=== PATIENT | male | born 1965 | race Caucasian/White ===

== ENCOUNTER 2025-02-05 06:16 | Day surgery (SDC) | payer BC, SELFPAY ==
[2025-02-05] VITALS (8 sets, daily range): BP systolic 110–123; BP diastolic 68–79; PULSE 49–65; RESP 16–18; TEMP 36.4–37; O2SAT 97–99; BMI 29.0
--- OUTSIDE RECORDS SUMMARY | 2025-02-05 06:19 | XMS RPT_ITS | CCD ---
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 28.70 ALLERGIES: No known drug allergies MEDICATION/IV/DRIP/F LUID ORDERS Order Description Priority Entered Acknowledged Completed LAB ORDERS Order Description Priority Entered Acknowledged Collected Completed DIAGNOSTIC STUDY ORDERS Order Description Priority Entered Acknowledged Completed Foot L Complete Stat Stat 08:36 07/25/2024 08:39 08:39 Obdulio Jaimes D.O. 07/25/2024 07/25/2024 Iza Ramirez R.N. R.N. Reason for Study: Foot/Heel Injury STAFF ORDERS Order Description Priority Entered Acknowledged Collected Completed Diego Tape Toes 09:36 07/25/2024 09:55 07/25/2024 Pam Oconnor D.O. RCindyNCindy 1 of 2 Order Sheet Post-op Shoe 09:36 07/25/2024 09:55 07/25/2024 Pam Oconnor D.O. RCindyNCindy [Electronically signed by Obdulio Jaimes D.O. (07/25/2024 09:35 EST)] [Electronically signed by Obdulio Jaimes D.O. (07/25/2024 09:36 EST)] 2 of 2 Normal [facility] ED PHYSICIAN CLINICAL REPORT on 07-25-2024 ED PHYSICIAN CLINICAL REPORT Narrative Physician Clinical Narrative [place] [address] [place] [address] [id number] 07/25/2024 Patient: CURT MANSFIELD [facility]#: [id number] Sex: Male : 1965 Age: 59y Disposition: Discharge to Home Disposition Decision Time: 09:31 07/25/2024 Measurements Wt: 90.7 kg, Ht/Shlomo: 70.0 in, BMI: 28.70 Initial Vital Sign Measured Time BP MAP HR RR O2Sat ETCO2 Temp Pain GCS RTS 08:30 07/25/2024 155/85 108 72 16 97% 97.9 F 3 Time Seen: 08:29 07/25/2024. Arrived- By private vehicle. Historian- patient. HISTORY OF PRESENT ILLNESS Chief Complaint: LOWER EXTREMITY PAIN and SWELLING and ; ;(left 5th toe pain). Severity is described as being moderate. The quality is noted to be aching. This started last night and is still present. Location: Left 5th toe. The patient has had swelling, but not had redness. The patient has had difficulty walking. No bladder dysfunction, bowel dysfunction, sensory loss or motor loss. Patient notes an injury. Similar symptoms previously. None. Recent medical care: Not recently seen/assessed. REVIEW OF SYSTEMS 1 of 4 Narrative CVS: No chest pain. SKIN: No skin rash. MUSCULOSKELETAL: No neck pain or back pain. NEUROLOGICAL: No headache. EYES: No blurred vision. THROAT: No sore throat. GI: No abdominal pain, vomiting, diarrhea or black stools. CONSTITUTIONAL: No fever. RESPIRATORY: No cough or difficulty breathing. PAST HISTORY See nurses notes. Hypertension: [Resolved] Surgeries: Tonsillectomy Medications: no known home medications Allergies: no known drug allergies SOCIAL HISTORY No alcohol use or drug use. ADDITIONAL NOTES The nursing notes have been reviewed. PHYSICAL EXAM Vital Signs: Have been reviewed. Appearance: Alert. Oriented X3. No acute distress. CVS: Normal heart rate and rhythm. Respiratory: No respiratory distress. Skin: Skin warm and dry. Normal skin color. Extremities: Left fifth toe: mild tenderness and swelling. No laceration. Neuro: Oriented X 3. No motor deficit. 2 of 4 Narrative LABS, X-RAYS, AND EKG Diagnostic Tests: Diagnostic tests have been ordered, with results reviewed and considered in the medical decision making process. Diagnostic Study Tests: FOOT COMPLETE LT Final EXAM Date: 07/25/2024 08:49:00 EST MsgRcvd: 07/25/2024 09:10 [place] [address] Patient: CURT MANSFIELD Phone#: : 1965 Age: 59 Gender: M Pt. Type: ER Account: [id number] Location: 2 Ordering: OBDULIO JAIMES Exam Date: 07/25/2024/8:37 Family Phys: Charge Code: 764152 Physician: Conway Order #: [id number] Dose#: PROCEDURE: X-RAY FOOT LT COMPLETE MIN 3 VIEWS COMPARISON: None. INDICATIONS: Foot injury. FINDINGS: BONES: Oblique fracture of the 5th proximal phalanx. The fracture does not involve the articular surfaces. Remaining osseous structures are intact. Bipartite medial 1st sesamoid. Small calcaneal spur measuring 0.3 cm. SOFT TISSUES: Soft tissue swelling the lateral foot the level of the fracture EFFUSION: None visible. OTHER: Negative. CONCLUSION: 1. Oblique fracture of the 5th proximal phalanx. Dictated by: Haydee Fish MD on 07/25/2024 at 9:03 Approved by: Haydee Fish MD on 07/25/2024 at 9:06 3 of 4 Narrative PROGRESS AND PROCEDURES MEDICAL DECISION MAKING: (This is a 59-year-old male presenting with left foot pain around his pinky toe. He states he was wrestling with his grand kids last night and kicked the couch and a vertically. He states it was deformed but he reduced it. On examination he has tenderness at the base of the left pinky toe. No other pain is noted. Patient is declines analgesia. Differential includes contusion, toe fracture, foot fracture . Three views of the left foot interpreted by myself shows an acute fracture of the 5th proximal phalanx which is oblique. Patient will be diego taped and placed in a postop shoe. He began follow up with Podiatry. He declines analgesia or crutches.). Disposition: Condition: good. Discharged in good condition. CLINICAL IMPRESSION Closed nondisplaced proximal phalanx fracture of the left 5th toe. DISCHARGE INSTRUCTIONS Follow-up: Follow up with your healthcare provider. Understanding of the discharge instructions verbalized. Follow-up with: Helga Meyer DPM, [facility], Podiatry, Phone: [phone], Fax: [phone], [address] [phone]. Call for an appointment. (Electronically signed by Obdulio Jaimes D.O. 07/25/24 09:35:19 EST) Generated by [facility] 4 of 4 [facility] ED SUPER BILLon 07-25-2024 ED SUPER BILL [address] [address] [id number] 07/25/2024 Patient: CURT MANSFIELD Sex: Male : 1965 Age: 59y Item Professional Category Description Facility Code Code Quantity Fee Total Nurse/E/M EMERGENCY 383131 1 $0.00 $0.00 DEPARTMENT VISIT LOW/MODER SEVERITY (22568-11) Grand Total $0.00 Providers Obdulio Jaimes D.O. Chief Complaint LOWER EXTREMITY PAIN and SWELLING and ; ;(left 5th toe pain). Principal Diagnosis Closed nondisplaced proximal phalanx fracture of the left 5th toe. ICD-10 Codes 1 of 2 [facility] S92.515A: Nondisplaced fracture of proximal phalanx of left lesser toe(s), initial encounter for closed fracture 2 of 2 [facility] ED VISIT SUMMARYon ED VISIT SUMMARY Visit Overview Visit Overview [address] [address] [id number] 07/25/2024 Patient: CURT MANSFIELD Sex: Male : 1965 Age: 59y 07/25/2024 10:46 AM EST ED Arrival:08:22 07/25/2024 EST Status: Recent Travel:no Language:eng Adv Directive:No Isolation Status: Ethnicity:N Fall Risk:no risk Infectious Disease Exposure:no Measurements:5'10 / 177.8 Self-Harm Status:risk Sepsis Screen:negative cm 200.0 lb / 90.7 kg Chief Complaint:left 5th toe, LEFT LOWER EXTREMITY PAIN, LEFT LOWER EXTREMITY REDNESS, LEFT LOWER EXTREMITY SWELLING, ([employer]), and (Pt was playing with his grandkids and accidently ran into the couch. Causing his left pinky toe to dislocate. Pt popped it back in. Pt is having a lot of pain today. ) ALLERGIES No Known Drug Allergies 1 of 3 Visit Overview HOME MEDICATIONS None PAST MEDICAL HISTORY / PROBLEMS Hypertension: Resolved See nurses notes PAST SURGICAL HISTORY Tonsillectomy SOCIAL HISTORY Smoking status: No Alcohol use: Yes Drug use: No ED COURSE MEDICATIONS GIVEN IN EMERGENCY DEPARTMENT IV SITE INFORMATION INTAKE OUTPUT REASSESMENT (most recent) 08:34 07/25/24. Ambulatory to room. GENERAL / NEURO / PSYCH: Oriented X 4. Alert. EXTREMITIES: Limited ROM present. Extremity pulses are within normal limits. Left fifth toe: tenderness, swelling, erythema, ecchymosis and deformity. Limited movement secondary to pain (diminished flexion and extension). SKIN: Skin is warm and dry. VITAL SIGNS First Vitals Last Vitals Temp 08:30 07/25/24 97.9 F Temp 08:30 07/25/24 97.9 F BP 08:30 07/25/24 155/85 BP 08:30 07/25/24 155/85 2 of 3 Visit Overview First Vitals Last Vitals HR 08:30 07/25/24 72 HR 08:30 07/25/24 72 RR 08:30 07/25/24 16 RR 08:30 07/25/24 16 O2 Sat 08:30 07/25/24 97% O2 Sat 08:30 07/25/24 97% Pain 08:30 07/25/24 3 Pain 08:30 07/25/24 3 ETCO2 08:30 07/25/24 ETCO2 08:30 07/25/24 GCS 08:30 07/25/24 GCS 08:30 07/25/24 RTS 08:30 07/25/24 RTS 08:30 07/25/24 PROCEDURES NURSING INTERVENTIONS LABS / STUDIES LABS / STUDIES ORDERED Foot L Complete CLINICAL IMPRESSION CLOSED NONDISPLACED PROXIMAL PHALANX FRACTURE OF THE LEFT 5TH TOE 3 of 3 Normal [facility] ED VITALS FLOW SHEETon 07-25 ED VITALS FLOW SHEET Vitals Vital Sign Flow Sheet [address] [place] [address] [id number] 07/25/2024 Patient: CURT MANSFIELD Sex: Male : 1965 Age: 59y Measurements Wt: 90.7 kg, Ht/Shlomo: 70.0 in, BMI: 28.70 Measured Time BP MAP HR RR O2Sat ETCO2 Temp Pain GCS RTS 08:30 07/25/2024 155/85 108 72 16 97% 97.9 F 3 1 of 1 Normal [facility] FOOT COMPLETE LTon FOOT COMPLETE LT [address] [address] Patient: CURT MANSFIELD Phone#: : 1965 Age: 59 Gender: M Pt. Type: ER Account: [id number] Location: [facility] Ordering: OBDULIO JAIMES Exam Date: 07/25/2024/8:37 Family Phys: Charge Code: [id number] Physician: Conway Order #: [id number] Dose#: PROCEDURE: X-RAY FOOT LT COMPLETE MIN 3 VIEWS COMPARISON: None. INDICATIONS: Foot injury. FINDINGS: BONES: Oblique fracture of the 5th proximal phalanx. The fracture does not involve the articular surfaces. Remaining osseous structures are intact. Bipartite medial 1st sesamoid. Small calcaneal spur measuring 0.3 cm. SOFT TISSUES: Soft tissue swelling the lateral foot the level of the fracture EFFUSION: None visible. OTHER: Negative. CONCLUSION: 1. Oblique fracture of the 5th proximal phalanx. Dictated by: Haydee Fish MD on 07/25/2024 at 9:03 Approved by: Haydee Fish MD on 07/25/2024 at 9:06 Normal [facility] COMPREHENSIVE METABOLIC PANE [place] 04-04-2024 Albumin [Mass/Vol] 4.5 g/dL Normal 3.6-5.1 [facility] Comment on above: Performed By: #### 1 5417, 1292, 6882 #### [facility] of [address], [address] [place] [address] Strip Polisher: Pietro Sanford MD Albumin/Globulin [Mass ratio] 2.0 {ratio} Normal 1.0-2.5 [facility] Comment on above: Performed By: #### 1 0231, 7600, 5363 #### [facility] of [address], [address] [place] [address] Strip Polisher: Pietro Sanford MD ALP [Catalytic activity/Vol] 43 U/L Normal 35-144 [facility] Comment on above: Performed By: #### 1 023, 7599, 5363 #### [facility] of [address], [address] [place] [address] Strip Polisher: Pietro Sanford MD ALT [Catalytic activity/Vol] 19 U/L Normal 9-46 [facility] Comment on above: Performed By: #### 1 023, 7599, 5363 #### [facility] of [address], [address] [place] [address] Strip Polisher: Pietro Sanford MD AST [Catalytic activity/Vol] 20 U/L Normal 10-35 [facility] Comment on above: Performed By: #### 1 023, 7599, 5363 #### [facility] of [place] [address] Strip Polisher: Pietro Sanford MD Bilirubin [Mass/Vol] 1.1 mg/dL Normal 0.2-1.2 [facility] Comment on above: Performed By: #### 1 023, 7599, 5363 #### [facility] of [place] [address] Strip Polisher: Pietro Sanford MD Calcium [Mass/Vol] 9.3 mg/dL Normal 8.6-10.3 [facility] Comment on above: Performed By: #### 1 023, 7599, 5363 #### [facility] of [place] [address] Strip Polisher: Pietro Sanford MD Chloride [Moles/Vol] 103 mmol/L Normal 98-110 [facility] Comment on above: Performed By: #### 1 230, 7599, 5363 #### [facility] of [address], [address] [place] [address] Strip Polisher: Pietro Sanford MD CO2 [Moles/Vol] 28 mmol/L Normal 20-32 [facility] Comment on above: Performed By: #### 1 230, 7599, 5363 #### [facility] [place] [address] Strip Polisher: Pietro Sanford MD Creatinine [Mass/Vol] 0.58 mg/dL Low 0.70-1.35 [facility] Comment on above: Performed By: #### 1 230, 7599, 5363 #### [facility] [place] [address] Strip Polisher: Pietro Sanford MD GFR/1.73 sq M.predicted among non-blacks MDRD (S/P/Bld) [Vol rate/Area] 112 mL/min/{1.73_m2} Normal > OR = 60 [facility] Comment on above: Performed By: #### 1 230, 7599, 5363 #### [facility] [place] [address] Strip Polisher: Pietro Sanford MD Globulin (S) [Mass/Vol] 2.2 g/dL Normal 1.9-3.7 [facility] Comment on above: Performed By: #### 1 230, 7599, 5363 #### [facility] [place] [address] Strip Polisher: Pietro Sanford MD Glucose [Mass/Vol] 89 mg/dL Normal 65-99 [facility] Comment on above: Result Comment: Fasting reference interval Performed By: #### 1 230, 7599, 5363 #### [facility] of [place] [address] Strip Polisher: Pietro Sanford MD Potassium [Moles/Vol] 3.9 mmol/L Normal 3.5-5.3 [facility] Comment on above: Performed By: #### 1 0231, 0, 5363 #### [facility] of [place] [address] Strip Polisher: Pietro Sanford MD Protein [Mass/Vol] 6.7 g/dL Normal 6.1-8.1 [facility] Comment on above: Performed By: #### 1 023, 7599, 5363 #### [facility] of [place] [address] Strip Polisher: Pietro Sanford MD Sodium [Moles/Vol] 140 mmol/L Normal 135-146 [facility] Comment on above: Performed By: #### 1 023, 7599, 5363 #### [facility] of [place] [address] Strip Polisher: Pietro Sanford MD Urea nitrogen [Mass/Vol] 9 mg/dL Normal 7-25 [facility] Comment on above: Performed By: #### 1 023, 7599, 5363 #### [facility] of [place] [address] Strip Polisher: Pietro Sanford MD Urea nitrogen/Creatinine [Mass ratio] 16 mg/mg Normal 6-22 [facility] Comment on above: Performed By: #### 1 023, 7599, 5363 #### [facility] of [place] [address] Strip Polisher: Pietro Sanford MD LIPID PANEL, [facility] - Cholesterol [Mass/Vol] 194 mg/dL Normal <200 [facility] Comment on above: Performed By: #### 1 0231, 7599, 5363 #### [facility] of [place] [address] Strip Polisher: Pietro Sanford MD Cholesterol in HDL [Mass/Vol] 80 mg/dL Normal > OR = 40 [facility] Comment on above: Performed By: #### 1 0231, 7600, 5363 #### [facility] [place] [address] Strip Polisher: Pietro Sanford MD Cholesterol in LDL [Mass/Vol] 98 mg/dL Normal [facility] Comment on above: Result Comment: Refe rence range: <100 Desirable range <100 mg/dL for primary prevention; <70 mg/dL for patients with CHD or diabetic patients with > or = 2 CHD risk factors. LDL-C is now calculated using the Pete calculation, which is a validated novel method providing better accuracy than the Friedewald equation in the estimation of LDL-C. Seferino SS et al. DILSHAD. 2013;310(19): 6039-9254 (http://education.[employer]ozy.[employer]/faq/CUX791) Performed By: #### 1 0231, 7600, 5363 #### [facility] [place] [address] Strip Polisher: Pietro Sanford MD Cholesterol.total/Ch olesterol in HDL [Mass ratio] 2.4 {ratio} Normal <5.0 [facility] Comment on above: Performed By: #### 1 023, 0, 5363 #### [facility] [place] [address] Strip Polisher: Pietro Sanford MD NON HDL CHOLESTEROL 114 mg/dL (calc) Normal <130 [facility] Comment on above: Result Comment: For patients with diabetes plus 1 major ASCVD risk factor, treating to a non-HDL-C goal of <100 mg/dL (LDL-C of <70 mg/dL) is considered a therapeutic option. Performed By: #### 1 0231, 7600, 5363 #### [facility] [place] [address] Strip Polisher: Pietro Sanford MD Triglyceride [Mass/Vol] 72 mg/dL Normal <150 [facility] Comment on above: Performed By: #### 1 0231, 7600, 5363 #### [facility] [address] Strip Polisher: Pietro Sanford MD PSA, TOTALon 04-04-2024 PSA, TOTAL 1.43 ng/mL Normal < OR = 4.00 [employer] Comment on above: Result Comment: The total PSA value from this assay system is standardized against the WHO standard. The test result will be approximately 20% lower when compared to the equimolar-standardized total PSA (Jorden Phani). Comparison of serial PSA results should be interpreted with this fact in mind. This test was performed using the Siemens chemiluminescent method. Values obtained from different assay methods cannot be used interchangeably. PSA levels, regardless of value, should not be interpreted as absolute evidence of the presence or absence of disease. Performed By: #### 1 3141, 3310, 5363 #### [facility] [address], [address] [place] [address] Strip Polisher: Pietro Sanford MD Laboratory - Chemistry and C hemistry - challengeon 04-03-2024 Albumin [Mass/Vol] 4.5 g/dL Normal 3.6 - 5.1 g/dL [facility], [facility].; [employer] Albumin/Globulin [Mass ratio] 2.0 {ratio} Normal 1.0 - 2.5 [facility], [facility].; [employer] ALP [Catalytic activity/Vol] 43 U/L Normal 35 - 144 U/L [facility], [facility].; [employer] ALT [Catalytic activity/Vol] 19 U/L Normal 9 - 46 U/L [employer] [facility], [facility].; [employer] AST [Catalytic activity/Vol] 20 U/L Normal 10 - 35 U/L [employer] [facility], [facility].; [employer] Bilirubin [Mass/Vol] 1.1 mg/dL Normal 0.2 - 1 .2 mg/dL [employer] [facility], [facility].; [employer] Calcium [Mass/Vol] 9.3 mg/dL Normal 8.6 - 10. 3 mg/dL [employer] [facility] [employer] Chloride [Moles/Vol] 103 mmol/L Normal 98 - 11 0 mmol/L [employer] [facility], [facility].; [facility] Cholesterol [Mass/Vol] 194 mg/dL Normal [facility].; [facility], [facility] Cholesterol in HDL [Mass/Vol] 80 mg/dL Normal [facility].; [facility], [facility] Cholesterol in LDL [Mass/Vol] 98 mg/dL Normal [facility], [facility].; [facility], [facility] CO2 [Moles/Vol] 28 mmol/L Normal 20 - 32 mmol/L [facility].; [facility], [facility] Creatinine [Mass/Vol] 0.58 mg/dL Abnormal 0.70 - 1.35 mg/dL [facility].; [facility], [facility] GFR/1.73 sq M.predicted among non-blacks MDRD (S/P/Bld) [Vol rate/Area] 112 mL/min/{1.73_m2} Normal [facility].; [facility], [facility] Glucose [Mass/Vol] 89 mg/dL Normal 65 - 99 mg/dL [facility].; [facility], [facility] Potassium [Moles/Vol] 3.9 mmol/L Normal 3.5 - 5.3 mmol/L [facility], [facility]; [facility], [facility] Protein [Mass/Vol] 6.7 g/dL Normal 6.1 - 8.1 g/dL [facility].; [facility], [facility] Sodium [Moles/Vol] 140 mmol/L Normal 135 - 146 mmol/L [facility], [facility].; [facility], [facility]. Triglyceride [Mass/Vol] 72 mg/dL Normal [facility], [facility].; [facility], [facility]. Urea nitrogen [Mass/Vol] 9 mg/dL Normal 7 - 25 mg/dL [facility], [facility].; [facility], [facility] Urea nitrogen/Creatinine [Mass ratio] 16 mg/mg Normal 6 - 22 [facility], [facility].; [facility], [facility] No Panel Informationon 04-03 CHOL/HDLC RATIO 2.4 Normal [facility].; [facility], [facility] GLOBULIN 2.2 Normal 1.9 - 3.7 [facility], [facility]; [facility] [facility] NON HDL CHOLESTEROL 114 Normal [facility].; [employer] [facility] PSA, TOTAL 1.43 ng/mL Normal [facility]; [facility], [facility] Laboratory - Chemistry and C hemistry - challengeon 06-01-2022 Albumin [Mass/Vol] 4.6 g/dL Normal 3.6 - 5.1 g/dL [facility].; [facility], [facility] Albumin/Globulin [Mass ratio] 1.8 {ratio} Normal 1.0 - 2.5 [facility].; [employer] [facility]. ALP [Catalytic activity/Vol] 51 U/L Normal 35 - 144 U/L [facility].; [facility], [facility]. ALT [Catalytic activity/Vol] 36 U/L Normal 9 - 46 U/L [facility].; [facility] [employer] [facility], [facility]. AST [Catalytic activity/Vol] 21 U/L Normal 10 - 35 U/L [facility].; [employer] [facility]. Bilirubin [Mass/Vol] 0.8 mg/dL Normal 0.2 - 1 .2 mg/dL [facility].; [employer] [facility], [facility]. Calcium [Mass/Vol] 9.4 mg/dL Normal 8.6 - 10. 3 mg/dL [facility].; [facility] [employer] [facility], [facility]. Chloride [Moles/Vol] 103 mmol/L Normal 98 - 11 0 mmol/L [facility].; [employer], [facility]. Cholesterol [Mass/Vol] 205 mg/dL Abnormal [facility].; [employer] [facility], [facility]. Cholesterol in HDL [Mass/Vol] 54 mg/dL Normal [facility].; [employer] [facility], [facility]. Cholesterol in LDL [Mass/Vol] 132 mg/dL Abnormal [facility].; [employer] [facility], [facility]. CO2 [Moles/Vol] 29 mmol/L Normal 20 - 32 mmol/L [facility], [facility].; [employer] [facility], [facility]. Creatinine [Mass/Vol] 0.76 mg/dL Normal 0.70 - 1.30 mg/dL [facility].; [facility] [facility], [facility]. GFR/1.73 sq M.predicted among non-blacks MDRD (S/P/Bld) [Vol rate/Area] 104 mL/min/{1.73_m2} Normal [facility].; [facility], [facility] Glucose [Mass/Vol] 100 mg/dL Abnormal 65 - 99 mg/dL [facility].; [facility], [facility] Potassium [Moles/Vol] 4.7 mmol/L Normal 3.5 - 5.3 mmol/L [facility]; [facility], [facility] Protein [Mass/Vol] 7.2 g/dL Normal 6.1 - 8.1 g/dL [facility]; [facility], [facility] Sodium [Moles/Vol] 140 mmol/L Normal 135 - 146 mmol/L [facility], [facility]; [facility], [facility] Triglyceride [Mass/Vol] 90 mg/dL Normal [facility]; [facility], [facility] Urea nitrogen [Mass/Vol] 17 mg/dL Normal 7 - 25 mg/dL [facility]; [facility], [facility] Laboratory - Hematology and Cell countson 06-01-2022 HbA1c (Bld) [Mass fraction] 5.0 % Normal [facility]; [facility], [facility]. No Panel Informationon 06-01 BUN/CREATININE RATIO NOT APPLICABLE Normal - [facility]; [facility], [facility] CHOL/HDLC RATIO 3.[address] [facility]; [facility], [facility]. GLOBULIN 2.6 Normal 1.9 - 3.7 [facility]; [facility], [facility]. NON HDL CHOLESTEROL 151 Abnormal [facility]; [facility], [facility] PSA, TOTAL 1.24 ng/mL Normal [facility].; [facility], [facility]. Laboratoryon 01-13-2015 Lower GI hemoglobin IA Ql (Stl) Not detected Normal [facility]; [facility], [facility]. Laboratory - Chemistry and C hemistry - challengeon 01-06-2015 Cholesterol [Mass/Vol] 209 mg/dL Abnormal 125 - 200 mg/dL [facility], [facility].; [employer], [facility]. Cholesterol in HDL [Mass/Vol] 63 mg/dL Normal [facility].; [employer] [facility], [facility]. Cholesterol in LDL [Mass/Vol] 134 mg/dL Abnormal [facility], [facility].; [employer], [employer]. Cholesterol non HDL [Mass/Vol] 146 mg/dL Normal [facility] [employer] [facility].; [employer], [employer]. Cholesterol.total/Ch olesterol in HDL [Mass ratio] 3.3 {ratio} Normal [facility], [facility].; [employer], [employer]. Glucose [Mass/Vol] 95 mg/dL Normal [facility].; [employer], [employer]. Triglyceride [Mass/Vol] 61 mg/dL Normal [employer], [facility].; [employer], [employer]. Laboratory - Chemistry and C hemistry - challengeon 01-29-2014 Cholesterol [Mass/Vol] 204 mg/dL Abnormal 125 - 200 mg/dL [facility].; [employer], [employer]. Cholesterol in HDL [Mass/Vol] 59 mg/dL Normal [employer] [facility].; [employer], [employer]. Cholesterol in LDL [Mass/Vol] 133 mg/dL Abnormal [facility].; [employer], [employer]. Cholesterol non HDL [Mass/Vol] 145 mg/dL Normal [employer] [facility], [facility].; [employer], [employer]. Cholesterol.total/Ch olesterol in HDL [Mass ratio] 3.5 {ratio} Normal [facility].; [employer] Glucose [Mass/Vol] 99 mg/dL Normal 65 - 99 mg/dL [facility].; [employer], [employer]. Triglyceride [Mass/Vol] 59 mg/dL Normal [employer] [facility].; [employer], [employer]. Laboratory - Chemistry and C hemistry - challengeon 07-23-2011 Bilirubin Ql (U) Negative [facility].; [employer], [employer]. Ketones Ql (U) Negative Normal [facility].; [employer], [employer]. pH (U) 7.0 [pH] Normal 4.6 - 8.0 [employer].; [employer] Specific gravity (U) [Rel density] 1.025 Normal 1.001 - 1.025 [employer]; [employer]. Laboratory - Hematology and Cell countson 07-23-2011 Hemoglobin Ql (U) Negative Normal [employer].; [employer]. Laboratory - Specimen inform ationon 07-23-2011 Appearance (U) clear Normal [facility] [employer]; [employer]. Color (U) yellow Normal [employer]; [employer]. Laboratory - Urinalysison Glucose Test strip (U) [Mass/Vol] Negative Normal [employer]; [employer]. Leukocyte esterase Test strip Ql (U) Negative Normal [employer].; [employer]. Nitrite Ql (U) Negative Normal [facility] [employer]; [employer]. Protein Ql (U) Negative Normal [facility] [employer]; [employer]. No Panel Informationon 07-23 UA - UROBILINOGEN 0.2 mg/dL Normal [employer]; [employer]. Laboratory - Chemistry and C hemistry - challengeon 07-21-2011 Albumin [Mass/Vol] 4.7 g/dL Normal 3.6 - 5.1 g/dL [facility] [employer].; [employer] Albumin/Globulin [Mass ratio] 2.0 {ratio} Normal 1.0 - 2.1 [employer]; [employer]. ALP [Catalytic activity/Vol] 60 U/L Normal 40 - 115 U/L [employer].; [employer]. ALT [Catalytic activity/Vol] 53 U/L Normal 9 - 60 U/L [employer].; [employer]. AST [Catalytic activity/Vol] 37 U/L Normal 10 - 40 U/L [employer].; [employer]. Bilirubin [Mass/Vol] 0.6 mg/dL Normal 0.2 - 1 .2 mg/dL [facility], [facility].; [facility], [facility]. Calcium [Mass/Vol] 9.7 mg/dL Normal 8.6 - 10. 2 mg/dL [facility], [facility].; [facility], [facility]. Chloride [Moles/Vol] 101 mmol/L Normal 98 - 11 0 mmol/L [facility], [facility].; [facility] Cholesterol [Mass/Vol] 225 mg/dL Abnormal 125 - 200 mg/dL [facility], [facility].; [facility], [facility]. Cholesterol in HDL [Mass/Vol] 57 mg/dL Normal [facility], [facility].; [facility], [facility]. Cholesterol in LDL [Mass/Vol] 153 mg/dL Abnormal [facility], [facility].; [facility], [facility]. Cholesterol.total/Ch olesterol in HDL [Mass ratio] 3.9 {ratio} Normal [facility], [facility].; [facility], [facility]. CO2 [Moles/Vol] 29 mmol/L Normal 21 - 33 mmol/L [facility], [facility].; [facility], [facility]. Creatinine [Mass/Vol] 0.78 mg/dL Normal 0.78 - 1.34 mg/dL [facility], [facility].; [facility], [facility]. GFR/1.73 sq M.predicted among blacks MDRD (S/P/Bld) [Vol rate/Area] 125 {ML/MIN/1.73M2} Normal [facility], [facility].; [facility] GFR/1.73 sq M.predicted MDRD (S/P/Bld) [Vol rate/Area] 107 {ML/MIN/1.73M2} Normal [facility], [facility].; [facility] Globulin (S) [Mass/Vol] 2.4 g/dL Normal 2.1 - 3.7 g/dL [facility], [facility].; [facility] Glucose [Mass/Vol] 100 mg/dL Abnormal 65 - 99 mg/dL [facility].; [facility] Potassium [Moles/Vol] 4.7 mmol/L Normal 3.5 - 5.3 mmol/L [facility].; [facility], [facility] Protein [Mass/Vol] 7.1 g/dL Normal 6.2 - 8.3 g/dL [facility].; [facility], [facility] Sodium [Moles/Vol] 136 mmol/L Normal 135 - 146 mmol/L [facility].; [facility], [facility] Triglyceride [Mass/Vol] 77 mg/dL Normal [facility]; [facility], [facility] Urea nitrogen [Mass/Vol] 14 mg/dL Normal 7 - 25 mg/dL [facility]; [facility], [facility] Urea nitrogen/Creatinine [Mass ratio] 18.3 mg/mg Normal 6 - 22 [facility]; [facility], [facility] Laboratory - Chemistry and C hemistry - challengeon 12-18-2010 Albumin [Mass/Vol] 4.5 g/dL Normal 3.6 - 5.1 g/dL [facility].; [facility], [facility] Albumin/Globulin [Mass ratio] 1.7 {ratio} Normal 1.0 - 2.1 [facility].; [facility], [facility]. ALP [Catalytic activity/Vol] 65 U/L Normal 40 - 115 U/L [facility].; [facility], [facility]. ALT [Catalytic activity/Vol] 46 U/L Normal 9 - 60 U/L [facility], [facility].; [facility], [facility]. AST [Catalytic activity/Vol] 37 U/L Normal 10 - 40 U/L [facility], [facility].; [facility], [facility]. Bilirubin [Mass/Vol] 0.6 mg/dL Normal 0.2 - 1 .2 mg/dL [facility], [facility].; [facility], [facility]. Calcium [Mass/Vol] 9.9 mg/dL Normal 8.6 - 10. 2 mg/dL [facility], [facility].; [facility], [facility]. Chloride [Moles/Vol] 103 mmol/L Normal 98 - 11 0 mmol/L [facility], [facility].; [facility], [facility] Cholesterol [Mass/Vol] 224 mg/dL Abnormal 125 - 200 mg/dL [facility], [facility].; [facility], [facility]. Cholesterol in HDL [Mass/Vol] 53 mg/dL Normal [facility].; [facility], [facility]. Cholesterol in LDL [Mass/Vol] 155 mg/dL Abnormal [facility].; [facility], [facility]. Cholesterol.total/Ch olesterol in HDL [Mass ratio] 4.2 {ratio} Normal [facility].; [facility], [facility]. CO2 [Moles/Vol] 25 mmol/L Normal 21 - 33 mmol/L [facility], [facility].; [facility], [facility]. Creatinine [Mass/Vol] 0.81 mg/dL Normal 0.78 - 1.34 mg/dL [facility], [facility].; [facility], [facility]. GFR/1.73 sq M.predicted among blacks MDRD (S/P/Bld) [Vol rate/Area] 124 {ML/MIN/1.73M2} Normal [facility], [facility].; [facility], [facility]. GFR/1.73 sq M.predicted MDRD (S/P/Bld) [Vol rate/Area] 107 {ML/MIN/1.73M2} Normal [facility], [facility].; [facility], [facility]. Globulin (S) [Mass/Vol] 2.7 g/dL Normal 2.1 - 3.7 g/dL [facility], [facility].; [facility], [facility]. Glucose [Mass/Vol] 101 mg/dL Abnormal 65 - 99 mg/dL [facility].; [facility], [facility]. Potassium [Moles/Vol] 4.0 mmol/L Normal 3.5 - 5.3 mmol/L [facility], [facility].; [facility], [facility]. Protein [Mass/Vol] 7.2 g/dL Normal 6.2 - 8.3 g/dL [facility], [facility].; [facility], [facility]. Sodium [Moles/Vol] 139 mmol/L Normal 135 - 146 mmol/L [facility], [facility].; [facility], [facility]. Triglyceride [Mass/Vol] 82 mg/dL Normal [facility], [facility].; [facility], [facility]. TSH Qn 2.22 m[IU]/L Normal 0.40 - 4.50 {mIU/L} [facility].; [employer] Urea nitrogen [Mass/Vol] 17 mg/dL Normal 7 - 25 mg/dL [facility].; [employer]. Urea nitrogen/Creatinine [Mass ratio] 20.4 mg/mg Normal 6 - 22 [employer].; [employer]. Laboratory - Chemistry and C hemistry - challengeon 09-25-2010 Bilirubin Ql (U) Negative Normal [facility] [employer]. Ketones Ql (U) Negative Normal [facility] [employer].; [employer]. pH (U) 6.0 [pH] Normal 4.6 - 8.0 [employer].; [employer] Specific gravity (U) [Rel density] 1.010 Normal 1.001 - 1.025 [employer].; [employer]. Laboratory - Hematology and Cell countson 09-25-2010 Hemoglobin Ql (U) Negative Normal [employer].; [employer]. Laboratory - Specimen inform ationon 09-25-2010 Appearance (U) Clear Normal [facility] [employer]. Color (U) Yellow Normal [employer].; [employer]. Laboratory - Urinalysison Glucose Test strip (U) [Mass/Vol] Negative Normal [employer].; [employer]. Leukocyte esterase Test strip Ql (U) Trace Normal [employer].; [employer]. Nitrite Ql (U) Negative [facility].; [employer]. Protein Ql (U) Negative Normal [facility].; [employer]. No Panel Informationon 09-25 UA - UROBILINOGEN 0.2 mg/dL Normal [employer].; [employer]. Vital Signs Date Time Vital Sign Value Performing Clinician Faci lity 12-28-2024 13:30-0400 Body height 177.8 cm Luke Kerry PA Work Phone: [facility] 12-28-2024 13:30-0400 Body mass index (BMI) [Ratio] 29 kg/m2 Luke Kerry PA Work Phone: [facility] 12-28-2024 13:30-0400 Body temperature 97.8 [degF] Luke Kerry PA Work Phone: [facility] 12-28-2024 13:30-0400 Body weight 91.62 kg Luke Kerry PA Work Phone: [facility] 12-28-2024 13:30-0400 Diastolic blood pressure 67 mm[Hg] Luke Kerry PA Work Phone: [facility] 12-28-2024 13:30-0400 Heart rate 99 /min Luke Kerry PA Work Phone: [facility] 12-28-2024 13:30-0400 Respiratory rate 18 /min Luke Kerry PA Work Phone: [facility] 12-28-2024 13:30-0400 SaO2% (BldA) [Mass fraction] 99 % Luke Kerry PA Work Phone: [facility] 12-28-2024 13:30-0400 Systolic blood pressure 146 mm[Hg] Luke Kerry PA Work Phone: [facility] 04-03-2024 08:41-0400 Body height 180.34 cm Leonor Richter RN [facility], [facility].; [facility]. 04-03-2024 08:41-0400 Body mass index (BMI) [Ratio] 28.03 kg/m2 Leonor Richter RN [facility], [facility].; [facility] 04-03-2024 08:41-0400 Body surface area Derived from formula 2.11 m2 Leonor Richter RN [facility] ServicesL[employer].; [facility]. 04-03-2024 08:41-0400 Body weight 91.17 kg Leonor Richter RN [facility].; [employer] [facility]. 04-03-2024 08:41-0400 Diastolic blood pressure 72 mm[Hg] Leonor Richter RN [facility].; [employer]. Comment on above: Patient Position: Sitting; Cuff Location : Right Arm; Cuff Size: Standard 04-03-2024 08:41-0400 Heart rate 69 /min Leonor Richter RN [facility] ServicesL[employer].; [employer]. Comment on above: Pattern: Regular 04-03-2024 08:41-0400 Systolic blood pressure 125 mm[Hg] Leonor Richter RN [facility].; [employer]. Comment on above: Patient Position: Sitting; Cuff Location : Right Arm; Cuff Size: Standard 03-18-2023 08:05-0400 Body height 180.34 cm Rosita Alcantara MA [facility] Services[facility].; [employer]. 03-18-2023 08:05-0400 Body mass index (BMI) [Ratio] 38.49 kg/m2 Rosita Alcantara MA [facility].; [employer] [facility]. 03-18-2023 08:05-0400 Body surface area Derived from formula 2.42 m2 Rosita Alcantara MA [facility].; [employer] [facility]. 03-18-2023 08:05-0400 Body weight 125.19 kg Rosita Alcantara MA [facility] [employer] [facility].; [employer]. 03-18-2023 08:05-0400 Diastolic blood pressure 76 mm[Hg] Rosita Alcantara MA [employer] [facility].; [employer]. Comment on above: Patient Position: Sitting; Cuff Location : Left Arm; Cuff Size: Standard 03-18-2023 08:05-0400 Heart rate 82 /min Rosita Alcantara MA [facility] [employer] [facility] [employer].; [employer]. Comment on above: Pattern: Regular 03-18-2023 08:05-0400 Systolic blood pressure 165 mm[Hg] Rosita Alcantara MA [facility], [facility].; [facility], [facility]. Comment on above: Patient Position: Sitting; Cuff Location : Left Arm; Cuff Size: Standard 06-01-2022 08:35-0500 Diastolic blood pressure 76 mm[Hg] Desi Mayberry LPN [facility] [employer]. Comment on above: Patient Position: Sitting; Cuff Location : Left Arm; Cuff Size: Standard 06-01-2022 08:35-0500 Heart rate 67 /min Desi Mayberry LPN [facility], [facility].; [employer]. Comment on above: Pattern: Regular 06-01-2022 08:35-0500 Systolic blood pressure 153 mm[Hg] Desi Mayberry LPN [facility], [facility].; [employer], [employer]. Comment on above: Patient Position: Sitting; Cuff Location : Left Arm; Cuff Size: Standard 06-01-2022 08:32-0500 Body height 180.34 cm Desi Mayberry LPN [facility], [facility].; [employer], [facility]. 06-01-2022 08:32-0500 Body mass index (BMI) [Ratio] 37.66 kg/m2 Desi Mayberry LPN [facility], [facility].; [employer] [facility], [facility]. 06-01-2022 08:32-0500 Body surface area Derived from formula 2.4 m2 Desi Mayberry LPN [facility], [facility].; [facility], [facility]. 06-01-2022 08:32-0500 Body weight 122.47 kg Desi Mayberry LPN [facility], [facility].; [employer], [facility]. 06-01-2022 08:32-0500 Diastolic blood pressure 79 mm[Hg] Desi Mayberry LPN [facility], [facility].; [employer], [employer]. Comment on above: Patient Position: Sitting; Cuff Location : Left Arm; Cuff Size: Standard 06-01-2022 08:32-0500 Heart rate 75 /min Desi Mayberry LPN [facility], [facility].; [employer], [employer]. Comment on above: Pattern: Regular 06-01-2022 08:32-0500 Systolic blood pressure 158 mm[Hg] Desi Mayberry LPN [facility], [facility].; [employer] [facility], [facility]. Comment on above: Patient Position: Sitting; Cuff Location : Left Arm; Cuff Size: Standard 01-09-2021 09:37-0400 Body height 180.34 cm Desi Mayberry LPN [facility] [facility], [facility].; [facility], [facility]. 01-09-2021 09:37-0400 Body mass index (BMI) [Ratio] 36.96 kg/m2 Desi Mayberry LPN [facility], [facility].; [facility] [employer] [facility], [facility]. 01-09-2021 09:37-0400 Body surface area Derived from formula 2.38 m2 Desi Mayberry SERVICE ENGINE REPAIRER [facility], [facility].; [facility] [employer] [facility], [facility]. 01-09-2021 09:37-0400 Body weight 120.2 kg Desi Mayberry LPN [facility], [facility].; [facility] [employer] [facility], [facility]. 01-09-2021 09:37-0400 Diastolic blood pressure 68 mm[Hg] Desi Mayberry LPN [facility].; [place] [employer] [facility], [employer]. Comment on above: Patient Position: Sitting; Cuff Location : Left Arm; Cuff Size: Standard 01-09-2021 09:37-0400 Heart rate 81 /min Desi Mayberry LPN [facility], [facility].; [employer], [employer]. Comment on above: Pattern: Regular 01-09-2021 09:37-0400 Systolic blood pressure 154 mm[Hg] Desi Mayberry LPN [facility], [facility].; [place] [employer] [facility], [employer]. Comment on above: Patient Position: Sitting; Cuff Location : Left Arm; Cuff Size: Standard 11-26-2019 15:54-0400 Body height 180.34 cm Chapincito Ramos MD Work Phone: [facility], [facility].; [place] [employer] [facility], [facility]. 11-26-2019 15:54-0400 Body mass index (BMI) [Ratio] 36.82 kg/m2 Chapincito Ramos MD Work Phone: [facility], [facility].; [place] [employer] [facility], [facility]. 11-26-2019 15:54-0400 Body surface area Derived from formula 2.37 m2 Chapincito Ramos MD Work Phone: [employer].; [employer]. 11-26-2019 15:54-0400 Body weight 119.75 kg Chapincito Ramos MD Work Phone: [employer].; [employer]. 11-26-2019 15:54-0400 Diastolic blood pressure 84 mm[Hg] Chapincito Ramos MD Work Phone: [employer].; [employer]. Comment on above: Patient Position: Sitting; Cuff Location : Left Arm; Cuff Size: Large 11-26-2019 15:54-0400 Heart rate 86 /min Chapincito Ramos MD Work Phone: [employer].; [employer]. Comment on above: Pattern: Regular 11-26-2019 15:54-0400 Systolic blood pressure 148 mm[Hg] Chapincito Ramos MD Work Phone: [employer].; [employer]. Comment on above: Patient Position: Sitting; Cuff Location : Left Arm; Cuff Size: Large 08-31-2016 08:56-0500 Body height 180.34 cm Chapincito Ramos MD Work Phone: [employer]; [employer]. 08-31-2016 08:56-0500 Body mass index (BMI) [Ratio] 30.96 kg/m2 Chapincito Ramos MD Work Phone: [employer]; [employer]. 08-31-2016 08:56-0500 Body surface area Derived from formula 2.2 m2 Chapincito Ramos MD Work Phone: [employer]; [employer]. 08-31-2016 08:56-0500 Body weight 100.7 kg Chapincito Ramos MD Work Phone: [employer].; [employer]. 08-31-2016 08:56-0500 Diastolic blood pressure 85 mm[Hg] Chapincito Ramos MD Work Phone: [employer].; [employer]. Comment on above: Patient Position: Sitting; Cuff Location : Left Arm; Cuff Size: Standard 08-31-2016 08:56-0500 Heart rate 73 /min Chapincito Ramos MD Work Phone: [facility] [employer]. Comment on above: Pattern: Regular 08-31-2016 08:56-0500 Systolic blood pressure 132 mm[Hg] Chapincito Ramos MD Work Phone: [employer].; [employer]. Comment on above: Patient Position: Sitting; Cuff Location : Left Arm; Cuff Size: Standard 01-06-2015 08:12-0400 Body height 175.9 cm Chapincito Ramos MD Work Phone: [employer].; [employer]. 01-06-2015 08:12-0400 Body mass index (BMI) [Ratio] 35.77 kg/m2 Chapincito Ramos MD Work Phone: [employer].; [employer]. 01-06-2015 08:12-0400 Body surface area Derived from formula 2.25 m2 Chapincito Ramos MD Work Phone: [employer].; [employer]. 01-06-2015 08:12-0400 Body weight 110.68 kg Chapincito Ramos MD Work Phone: [employer].; [employer]. 01-06-2015 08:12-0400 Diastolic blood pressure 81 mm[Hg] Chapincito Ramos MD Work Phone: [employer].; [employer]. Comment on above: Patient Position: Sitting; Cuff Location : Left Arm; Cuff Size: Standard 01-06-2015 08:12-0400 Heart rate 73 /min Chapincito Ramos MD Work Phone: [employer].; [employer]. Comment on above: Pattern: Regular 01-06-2015 08:12-0400 Systolic blood pressure 132 mm[Hg] Chapincito Ramos MD Work Phone: [employer].; [employer]. Comment on above: Patient Position: Sitting; Cuff Location : Left Arm; Cuff Size: Standard 07-01-2014 11:35-0500 Body height 175.9 cm Francine Patricia Love LPN [facility] [employer] [facility], [employer], [employer]. 07-01-2014 11:35-0500 Body mass index (BMI) [Ratio] 34.45 kg/m2 Francine Patricia Love SERVICE ENGINE REPAIRER [employer], [employer].; [employer]. 07-01-2014 11:35-0500 Body surface area Derived from formula 2.22 m2 Francine Patricia Love SERVICE ENGINE REPAIRER [employer], [employer].; [employer]. 07-01-2014 11:35-0500 Body weight 106.6 kg Francine Patricia Love SERVICE ENGINE REPAIRER [employer], [employer].; [employer]. 07-01-2014 11:35-0500 Diastolic blood pressure 92 mm[Hg] Francine Patricia Love SERVICE ENGINE REPAIRER [employer], [employer].; [employer]. Comment on above: Patient Position: Sitting; Cuff Location : Right Arm; Cuff Size: Standard 07-01-2014 11:35-0500 Heart rate 79 /min Francine Patricia Love SERVICE ENGINE REPAIRER [employer], [employer].; [employer]. Comment on above: Pattern: Regular 07-01-2014 11:35-0500 Systolic blood pressure 148 mm[Hg] Francine Patricia Love SERVICE ENGINE REPAIRER [employer], [employer].; [employer]. Comment on above: Patient Position: Sitting; Cuff Location : Right Arm; Cuff Size: Standard 06-03-2014 09:15-0500 Body height 175.9 cm Francine Patricia Love SERVICE ENGINE REPAIRER [employer], [employer].; [employer]. 06-03-2014 09:15-0500 Body mass index (BMI) [Ratio] 34.16 kg/m2 Francine Patricia Love SERVICE ENGINE REPAIRER [employer]. 06-03-2014 09:15-0500 Body surface area Derived from formula 2.21 m2 Francine Love SERVICE ENGINE REPAIRER [employer] [facility], [employer] 06-03-2014 09:15-0500 Body weight 105.69 kg Francine Patricia Love SERVICE ENGINE REPAIRER [place] [employer] [facility], [facility], [employer] 06-03-2014 09:15-0500 Diastolic blood pressure 75 mm[Hg] Francine Patricia Love SERVICE ENGINE REPAIRER [facility], [facility].; [employer] Comment on above: Patient Position: Sitting; Cuff Location : Right Arm; Cuff Size: Large 06-03-2014 09:15-0500 Heart rate 74 /min Francine Patricia Love [facility] [employer] [facility], [employer], [employer] Comment on above: Pattern: Regular 06-03-2014 09:15-0500 Systolic blood pressure 127 mm[Hg] Francine Patricia Love SERVICE ENGINE REPAIRER [employer] [facility], [employer], [employer] Comment on above: Patient Position: Sitting; Cuff Location : Right Arm; Cuff Size: Large 01-14-2014 13:58-0400 Body height 175.9 cm Chapincito Ramos MD Work Phone: [employer], [employer].; [employer] 01-14-2014 13:58-0400 Body mass index (BMI) [Ratio] 32.69 kg/m2 Chapincito Ramos MD Work Phone: [employer], [employer].; [employer] 01-14-2014 13:58-0400 Body surface area Derived from formula 2.17 m2 Chapincito Ramos MD Work Phone: [employer].; [employer] 01-14-2014 13:58-0400 Body weight 101.15 kg Chapincito Ramos MD Work Phone: [employer].; [employer], [employer]. 01-14-2014 13:58-0400 Diastolic blood pressure 76 mm[Hg] Chapincito Ramos MD Work Phone: [employer].; [employer]. Comment on above: Patient Position: Sitting; Cuff Location : Right Arm; Cuff Size: Standard 01-14-2014 13:58-0400 Heart rate 71 /min Chapincito Ramos MD Work Phone: [facility], [employer].; [employer]. Comment on above: Pattern: Regular 01-14-2014 13:58-0400 Systolic blood pressure 124 mm[Hg] Chapincito Ramos MD Work Phone: [facility], [employer].; [employer]. Comment on above: Patient Position: Sitting; Cuff Location : Right Arm; Cuff Size: Standard 07-02-2013 10:22-0500 Body height 180.34 cm PaulinaMeg Lozano [facility], Inc.; [employer]. 07-02-2013 10:22-0500 Body mass index (BMI) [Ratio] 32.08 kg/m2 [facility] Marta [facility], Inc.; [employer], [employer]. 07-02-2013 10:22-0500 Body surface area Derived from formula 2.24 m2 [facility].; [employer], [employer]. 07-02-2013 10:22-0500 Body weight 104.33 kg [facility] Marta [facility] [employer] [facility], [employer].; [employer]. 07-02-2013 10:22-0500 Diastolic blood pressure 77 mm[Hg] Paulina Stuckey [facility] [employer] [facility], [employer].; [employer]. Comment on above: Patient Position: Sitting; Cuff Location : Left Arm; Cuff Size: Large 07-02-2013 10:22-0500 Heart rate 64 /min Paulina Stuckey [facility], [employer]. Comment on above: Pattern: Regular 07-02-2013 10:22-0500 Systolic blood pressure 123 mm[Hg] [facility]a [facility] [employer] [facility], [employer].; [employer]. Comment on above: Patient Position: Sitting; Cuff Location : Left Arm; Cuff Size: Large 07-23-2011 08:37-0500 Body height 180.34 cm Annita Velez [facility] [employer] [facility], [employer].; [employer]. 07-23-2011 08:37-0500 Body mass index (BMI) [Ratio] 37.35 kg/m2 Annita C Agustin SERVICE ENGINE REPAIRER [employer], [employer]. 07-23-2011 08:37-0500 Body surface area Derived from formula 2.39 m2 Annita C Agustin SERVICE ENGINE REPAIRER [employer] 07-23-2011 08:37-0500 Body weight 121.47 kg Annita C [place] SERVICE ENGINE REPAIRER [employer], [employer]. 07-23-2011 08:37-0500 Diastolic blood pressure 79 mm[Hg] Annita C Agustin SERVICE ENGINE REPAIRER [employer], [employer].; [employer]. Comment on above: Patient Position: Sitting; Cuff Location : Left Arm; Cuff Size: Large 07-23-2011 08:37-0500 Heart rate 92 /min Annita C Agustin SERVICE ENGINE REPAIRER [employer] [facility], [employer].; [employer]. Comment on above: Pattern: Regular 07-23-2011 08:37-0500 Systolic blood pressure 152 mm[Hg] Annita C [place] SERVICE ENGINE REPAIRER [employer]. Comment on above: Patient Position: Sitting; Cuff Location : Left Arm; Cuff Size: Large 04-13-2011 14:51-0400 Body height 180.34 cm Annita C [place] SERVICE ENGINE REPAIRER [employer], [employer].; [employer]. 04-13-2011 14:51-0400 Body mass index (BMI) [Ratio] 35.84 kg/m2 Annita C [place] SERVICE ENGINE REPAIRER [employer], [employer]. 04-13-2011 14:51-0400 Body surface area Derived from formula 2.35 m2 Annita C Agustin SERVICE ENGINE REPAIRER [employer], [employer]. 04-13-2011 14:51-0400 Body weight 116.58 kg Annita C [place] SERVICE ENGINE REPAIRER [employer], [employer]. 04-13-2011 14:51-0400 Diastolic blood pressure 83 mm[Hg] Annita C [place] SERVICE ENGINE REPAIRER [employer].; [employer]. Comment on above: Patient Position: Sitting; Cuff Location : Right Arm; Cuff Size: Large 04-13-2011 14:51-0400 Heart rate 83 /min Annita C Agustin SERVICE ENGINE REPAIRER [facility], [facility].; [employer]. Comment on above: Pattern: Regular 04-13-2011 14:51-0400 Systolic blood pressure 143 mm[Hg] Annita C [place] SERVICE ENGINE REPAIRER [employer]. Comment on above: Patient Position: Sitting; Cuff Location : Right Arm; Cuff Size: Large 01-12-2011 15:21-0400 Body height 180.34 cm Annita C [place] SERVICE ENGINE REPAIRER [place] [employer] [facility], [facility].; [employer], [employer]. 01-12-2011 15:21-0400 Body mass index (BMI) [Ratio] 35.56 kg/m2 Annita C Agustin SERVICE ENGINE REPAIRER [employer], [employer]. 01-12-2011 15:21-0400 Body surface area Derived from formula 2.34 m2 Annita C [place] SERVICE ENGINE REPAIRER [place] [employer] [facility], [facility].; [employer], [employer]. 01-12-2011 15:21-0400 Body weight 115.67 kg Annita C [place] SERVICE ENGINE REPAIRER [employer], [employer].; [employer], [employer]. 01-12-2011 15:21-0400 Diastolic blood pressure 84 mm[Hg] Annita C Agustin SERVICE ENGINE REPAIRER [employer], [employer]. Comment on above: Patient Position: Sitting; Cuff Location : Left Arm; Cuff Size: Large 01-12-2011 15:21-0400 Heart rate 85 /min Annita C Agustin SERVICE ENGINE REPAIRER [employer]. Comment on above: Pattern: Regular 01-12-2011 15:21-0400 Systolic blood pressure 141 mm[Hg] Annita C [place] SERVICE ENGINE REPAIRER [employer]. Comment on above: Patient Position: Sitting; Cuff Location : Left Arm; Cuff Size: Large 12-11-2010 14:28-0400 Body height 180.34 cm [facility] [employer].; [employer]. 12-11-2010 14:28-0400 Body mass index (BMI) [Ratio] 35.29 kg/m2 Magali Lewis [facility] [employer] [facility], [employer].; [employer], [employer]. 12-11-2010 14:28-0400 Body surface area Derived from formula 2.33 m2 Magali Lewis [facility] [employer] [facility], [facility].; [employer], [employer]. 12-11-2010 14:28-0400 Body weight 114.76 kg Magali Lewis [facility] [employer] [facility], [facility].; [employer], [employer]. 12-11-2010 14:28-0400 Diastolic blood pressure 84 mm[Hg] [facility] [employer] [facility], [employer].; [employer], [employer]. Comment on above: Patient Position: Sitting; Cuff Location : Left Arm; Cuff Size: Large 12-11-2010 14:28-0400 Heart rate 85 /min Magalidarlyn Lewis [facility] [employer] [facility], [employer], [employer]. Comment on above: Pattern: Regular 12-11-2010 14:28-0400 Systolic blood pressure 135 mm[Hg] Magali Lewis SERVICE ENGINE REPAIRER [facility] [employer] [facility], [facility], [employer]. Comment on above: Patient Position: Sitting; Cuff Location : Left Arm; Cuff Size: Large 09-25-2010 10:58-0500 Body temperature 96.5 [degF] Anabel Lobato SERVICE ENGINE REPAIRER [facility] [employer] [facility], [facility].; [employer], [employer]. 09-25-2010 10:58-0500 Body weight 117.03 kg Anabel Lobato LPN [facility] [employer] [facility], [employer].; [employer], [employer]. 09-25-2010 10:58-0500 Diastolic blood pressure 84 mm[Hg] Anabel Lobato LPN [employer] [facility], [employer].; [employer]. Comment on above: Patient Position: Sitting; Cuff Location : Left Arm; Cuff Size: Standard 09-25-2010 10:58-0500 Heart rate 75 /min Anabel Lobato LPN [facility] [employer] [facility], [employer].; [employer]. Comment on above: Pattern: Regular 09-25-2010 10:58-0500 Systolic blood pressure 149 mm[Hg] Anabel Lobato LPN [facility] [employer] [facility] Comment on above: Patient Position: Sitting; Cuff Location : Left Arm; Cuff Size: Standard Encounters Encounter Date Encounter Type Care Provider Facility Start: 02-05-2025 ambulatory Vaibhav Cardenas Facility :[facility] Start: 12-28-2024 End: 12-28-[address] Vaibhav Cardenas MD -[facility] Work Phone: Start: 12-28-2024 End: 12-28-2024 ambulatory Luke Kerry PA Work Phone: [facility] Work Phone: Start: 12-11-2024 Review Luke Hochstetl er PA-C Work Phone: [facility] Start: 12-11-2024 End: 12-11-2024 Orders Luke Kerry PA-C Work Phone: [employer]. Start: 07-27-2024 End: 07-27-2024 Telephone follow-up Luke Kerry PA-C Work Phone: [employer]. Start: 07-25-2024 End: 07-25-2024 Emergency department patient visit [facility]BD[facility] Start: 04-03-2024 End: 04-03-2024 Patient encounter status Luke Kerry PA-C Work Phone: [employer]. Start: 04-03-2024 End: 04-03-2024 Periodic preventive med est patient 40-64yrs Luke Kerry PA-C Work Phone: [employer]. Start: 04-03-2024 Patient encounter status Leonor Richter RN [employer]. Start: 04-03-2024 Review Luke Hochstetl er PA-C Work Phone: [employer]. Start: 03-27-2024 End: 03-27-2024 Orders Luke Kerry PA-C Work Phone: [employer]. Start: 03-18-2023 End: 03-18-2023 Office outpatient visit 25 minutes Luke Kerry PA-C Work Phone: [employer]. Start: 12-14-2022 End: 12-14-2022 ambulatory NONE NONE Facility:[facility] Start: 06-01-2022 End: 06-01-2022 Patient encounter status Luke Kerry PA-C Work Phone: [employer] Start: 06-01-2022 End: 06-01-2022 Periodic preventive med est patient 40-64yrs Luke Kerry PA-C Work Phone: [employer]. Start: 02-12-2021 End: 02-12-2021 Admission to establishment Luke Kerry PA-C Work Phone: [employer]. Start: 01-09-2021 End: 01-09-2021 Patient encounter status Desi Mayberry LPN [employer] Start: 01-09-2021 End: 01-09-2021 Periodic preventive med est patient 40-64yrs Luke Kerry PA-C Work Phone: [employer]. Start: 11-26-2019 End: 11-26-2019 Office outpatient visit 15 minutes Luke Kerry PA-C Work Phone: [employer] Start: 08-31-2016 End: 08-31-2016 Patient encounter procedure Luke Kerry PA-C Work Phone: [employer] Start: 01-06-2015 End: 01-06-2015 Periodic preventive med est patient 40-64yrs Luke Kerry PA-C Work Phone: [employer] Start: 01-06-2015 End: 01-06-2015 Routine general medical examination at a health care facility Luke Kerry PA-C Work Phone: [employer] Start: 07-01-2014 End: 07-01-2014 Historical Summary Luke Kerry PA-C Work Phone: [employer]. Start: 07-01-2014 End: 07-01-2014 Office outpatient visit 15 minutes Luke Kerry PA-C Work Phone: [employer]. Start: 06-03-2014 End: 06-03-2014 Office outpatient visit 15 minutes Luke Kerry PA-C Work Phone: [employer]. Start: 01-29-2014 End: 01-29-2014 Orders Luke Kerry PA-C Work Phone: [employer]. Start: 01-29-2014 End: 01-29-2014 Routine general medical examination at a health care facility Luke Kerry PA-C Work Phone: [employer] Start: 01-14-2014 End: 01-14-2014 Patient encounter procedure Luke Kerry PA-C Work Phone: [employer]. Start: 01-14-2014 End: 01-14-2014 Routine general medical examination at a health care facility Luke Kerry PA-C Work Phone: [employer] Start: 01-11-2014 End: 01-11-2014 Historical Summary Luke Kerry PA-C Work Phone: [employer]. Start: 07-03-2013 End: 07-03-2013 Orders Luke Kerry PA-C Work Phone: [employer]. Start: 07-02-2013 End: 07-03-2013 Patient encounter procedure Luke Kerry PA-C Work Phone: [employer]. Start: 07-23-2011 End: 07-23-2011 Patient encounter procedure Luke Kerry PA-C Work Phone: [employer]. Start: 07-23-2011 End: 07-23-2011 Routine general medical examination at a health care facility Reji Kerry PA-C Work Phone: [employer] Start: 07-21-2011 End: 07-21-2011 Orders Luke Kerry PA-C Work Phone: [employer]. Start: 07-06-2011 End: 07-06-2011 Orders Luke Kerry PA-C Work Phone: [employer]. Start: 04-13-2011 End: 04-13-2011 Patient encounter procedure Luke Kerry PA-C Work Phone: [employer]. Start: 01-12-2011 End: 01-13-2011 Patient encounter procedure Luke Kerry PA-C Work Phone: [employer]. Start: 12-18-2010 End: 12-18-2010 Orders Luke Kerry PA-C Work Phone: [employer]. Start: 12-11-2010 End: 12-11-2010 Patient encounter procedure Luke Kerry PA-C Work Phone: [employer]. Start: 09-25-2010 End: 09-25-2010 Nursing evaluation of patient and report Luke Kerry PA-C Work Phone: [employer]. Start: 09-25-2010 End: 09-25-2010 Patient encounter procedure Luke Kerry PA-C Work Phone: [employer] Patient encounter status Rosita Alcantara MA [employer]. Patient encounter status Reji De La Vegaler PA-C Work Phone: [facility].; [facility] Procedures Date Procedure Procedure Detail Performing Clinician Start: 04-03-2024 End: 04-03-2024 Depression screening Lukim Barnesetler PA-C Work Phone: Start: 04-03-2024 End: 04-03-2024 Falls risk assessment documented Lukim DrakeKerry PA-C Work Phone: Start: 04-03-2024 End: 12-11-2024 Oncology colorectal screening rose 10 dna markrs Reji Barnesetler PA-C Work Phone: Start: 04-03-2024 End: 04-03-2024 Pos clin depres scrn f/u doc Luke Ellen DrakeKerry PA-C Work Phone: Start: 04-03-2024 End: 04-03-2024 Pt falls assess docd w/o fall/injury past year Reji Barnesetler PA-C Work Phone: Start: 04-03-2024 End: 04-03-2024 Scr dep neg, no plan reqd Luke E Hochste tler PA-C Work Phone: Start: 06-01-2022 End: 06-01-2022 Depression screening Reji Barnesetler PA-C Work Phone: Start: 06-01-2022 End: 06-01-2022 Lab findings surveillance Leonor mosquera RN Comment on above: Results:. 100 in CMP Start: 06-01-2022 End: 06-01-2022 Lipid panel Leonor Richter RN Start: 06-01-2022 End: 06-01-2022 No Known Past Surgical History Desi Mayberry LPN Start: 06-01-2022 End: 06-01-2022 Scr dep neg, no plan reqd Luke Ellen Drakeste tler PA-C Work Phone: Start: 02-12-2021 End: 02-12-2021 Kristina Mayberry LPN Comment on above: Normal. Start: 02-06-2021 End: 02-06-2021 Kristina Richter RN Comment on above: Normal. Start: 01-15-2021 End: 01-15-2021 FIT DNA test Desi Mayberry LPN Comment on above: Neg Start: 01-09-2021 End: 01-09-2021 Depression screening Chapincito Ramos MD Work Phone: Start: 01-09-2021 End: 01-09-2021 Scr dep neg, no plan reqd Chapincito Ramos MD Work Phone: Start: 07-18-2019 End: 07-18-2019 Decompression of median nerve Desi Mayberry LPN Comment on above: [place] Start: 06-03-2014 End: 06-03-2014 Arthrocentesis aspir&/inj interm jt/burs w/o us Chapincito Ramos MD Work Phone: Start: 01-29-2014 End: 01-29-2014 Lab findings surveillance Desi Mayberry LPN Comment on above: Results:. 99 Start: 01-29-2014 End: 01-29-2014 Lipid panel Desi Mayberry LPN Start: 07-03-2013 End: 08-09-2013 Ndl emg 1 xtr w/wo related paraspinal areas Chapincito Ramos MD Work Phone: Start: 07-02-2013 End: 08-02-2013 Motor &/sens nrv cndj preconf eltrd array limb Chapincito Ramos MD Work Phone: Start: 07-23-2011 End: 07-23-2011 Screening test visual acuity quantitative bilat Chapincito Ramos MD Work Phone: Start: 12-18-2010 End: 12-22-2010 Ecg routine ecg w/least 12 lds i&r only Chapincito Ramos MD Work Phone: Plan of Treatment Date Care Activity Detail Author Start: 04-03-2024 Assay of prostate sp ecific antigen total PSA TOTAL (PROSTATE SPECIFIC ANTIGEN) (82411) Start: 03-Apr-2024 Request [facility] [employer] Start: 04-03-2024 Oncology colorectal screening rose 10 dna markrs COLOGUARD COLON CANCER SCREENING USING STOOL DNA AT POINT OF CARE ([id number]) Start: 03-Apr-2024 [facility] [employer] Start: 04-03-2024 [facility] [employer]. Start: 04-03-2024 Comprehensive metabo lic panel [facility] [employer]. Start: 04-03-2024 Patient encounter procedure Medical; PHYSICAL - physical/ will be fasting [facility] Start: 03-Apr-2024 13:10-04:00 MOMO [place] Appointment Request [facility] Payers Date Payer Category Payer Unknown [id number] 1965 Unknown [id number] 1965 Unknown [id number] 1960 Self-pay Unknown CECILIA Unknown [id number] [id number] [id number] Unknown [id number] [id number] [id number] Social History Date Type Detail Facility Alcohol Use: Alcohol Use: ; Moderate alcohol use. [facility] [employer]. Caffeine Use Caffeine Use [facility] [employer]. Tobacco Use: Tobacco Use: ; N ever smoker. [employer], [employer]. Start: 1965 Male [facility] Never smoked tobacco [employer] Work Phone: Moderate alcohol use [employer] Work Phone: Alcohol Use: Alcohol Use: ; M ore than 7 drinks per week. Moderate alcohol use. [facility] Tobacco smoking stat us DEIS Unknown if ever smoked [employer] Work Phone: Clinical Note 07-25-2024 Note Date & Type Note Facility 07-25-2024 Note Discharge Instructio ns Discharge Summary [address] [address] [id number] 07/25/2024 Patient: CURT MANSFIELD Sex: Male : 1965 Age: 59y Thank you for visiting [facility]. You have been evaluated today by Obdulio Jaimes D.O. for the following condition(s): Principal Diagnosis Closed nondisplaced proximal phalanx fracture of the left 5th toe. INSTRUCTIONS Follow-up: Follow up with your healthcare provider. Understanding of the discharge instructions verbalized. Follow-up with: Helga Meyer DPM, [facility], Podiatry, Phone: [phone], Fax: [phone], [address] [place] [id number]. Call for an appointment. You have been given the following additional information: Closed Toe Fracture Patient Signature Facility Vp Director Of Finance 1 of 4 Discharge Instructions Date/Time General Instructions with ExitWriter [address] [address] [id number] 07/25/2024 Patient: CURT MANSFIELD Sex: Male : 1965 Age: 59y Thank you for visiting [facility]. You have been evaluated today by Obdulio Jaimes D.O. for the following condition(s): Principal Diagnosis Closed nondisplaced proximal phalanx fracture of the left 5th toe. INSTRUCTIONS Follow-up: Follow up with your healthcare provider. Understanding of the discharge instructions verbalized. Follow-up with: Helga Meyer DPM, [facility], Phone: [phone], Fax: [phone], [address] [place] [address]. Call for an appointment. ADDITIONAL INFORMATION Closed Toe Fracture Your toe is broken (fractured). This causes pain, swelling, and sometimes bruising. This injury usually takes about 4 to 6 weeks to heal, but can sometimes take longer. Toe injuries are often treated by taping the injured toe to the next one (diego taping). Or you may have a hard shoe, splint, or cast. These protect the injured toe and hold it in position. If the toenail has been severely injured, it may fall off in 1 to 2 weeks. It takes up to 12 months for a new toenail to grow back. 2 of 4 Discharge Instructions Home care Follow these guidelines when caring for yourself at home: You may be given a cast shoe to wear to keep your toe from moving. If not, you can use a sandal or any shoe that doesn't put pressure on the injured toe until the swelling and pain go away. If using a sandal, be careful not to strike your foot against anything. Another injury could make the fracture worse. If you were given crutches, don't put full weight on the injured foot until you can do so without pain, or as directed by your healthcare provider. Keep your foot elevated to reduce pain and swelling. When sleeping, put a pillow under the injured leg. When sitting, support the injured leg so it is above your waist. This is very important during the first 2 days (48 hours). Put an ice pack on the injured area. Do this for 20 minutes every 1 to 2 hours the first day for pain relief. You can make an ice pack by wrapping a plastic bag of ice cubes in a thin towel. As the ice melts, be careful that any cloth or paper tape doesn't get wet. Continue using the ice pack 3 to 4 times a day for the next 2 days. Then use the ice pack as needed to ease pain and swelling. If diego tape was used and it becomes wet or dirty, change it. You may replace it with paper, plastic, or cloth tape. Cloth tape and paper tapes must be kept dry. You may use acetaminophen or ibuprofen to control pain, unless another pain medicine was prescribed. If you have chronic liver or kidney disease, talk with your healthcare provider before using these medicines. Also talk with your provider if you've had a stomach ulcer or gastrointestinal bleeding. You may return to sports or physical education activities after 4 weeks when you can run without pain, or as directed by your healthcare provider. Follow-up care Follow up with your healthcare provider or as advised. This is to make sure the bone is healing the way it should. X-rays may be taken. You will be told of any new findings that may affect your care. When to seek medical advice Call your healthcare provider right away if any of these occur: Pain or swelling gets worse The cast/splint cracks The cast and padding get wet and stays wet more than 24 hours 3 of 4 Discharge Instructions Bad odor from the cast/splint or wound fluid stains the cast Tightness or pressure under the cast/splint gets worse Toe becomes cold, blue, numb, or tingly You can't move the toe Signs of infection: fever, redness, warmth, swelling, or drainage from the wound or cast Fever of 100.4F (38C) or higher, or as directed by your healthcare provider Shaking chills 4 of 4 [facility] Evaluation note Note Date & Type Note Facility Evaluation note No assessment information availa [facility] Work Phone: Reason for referral (narrative) Note Date & Type Note Facility Reason for referral (narrative) No reason for referral information available [facility] Work Phone: Summary Purpose Family History No Family History Records Found Cancer Status:Active Comments:Father. lung--heavy smoker Cerebrovascular Accident Status:Active Comment s:Negative Family History Of. Coronary Artery Disease Status:Active Comments :Negative Family History Of. Diabetes Mellitus Type II Status:Active Commen ts:Mother. Hypertension Status:Active Comments:Mother. Hypothyroidism Status:Active Comments:Josefa horn Osteoarthritis Status:Active Comments:Mother. Cancer Status:Active Comments:Father. lung--heavy smoker Cerebrovascular Accident Status:Active Comment s:Negative Family History Of. Coronary Artery Disease Status:Active Comments :Negative Family History Of. Diabetes Mellitus Type II Status:Active Commen ts:Mother. Hypertension Status:Active Comments:Mother. Hypothyroidism Status:Active Comments:Josefa horn Osteoarthritis Status:Active Comments:Mother. Cancer Status:Active Comments:Father. lung--heavy smoker Cerebrovascular Accident Status:Active Comment s:Negative Family History Of. Coronary Artery Disease Status:Active Comments :Negative Family History Of. Diabetes Mellitus Type II Status:Active Commen ts:Mother. Hypertension Status:Active Comments:Mother. Hypothyroidism Status:Active Comments:Josefa horn Osteoarthritis Status:Active Comments:Mother. Cancer Status:Active Comments:Father. lung--heavy smoker Cerebrovascular Accident Status:Active Comment s:Negative Family History Of. Coronary Artery Disease Status:Active Comments :Negative Family History Of. Diabetes Mellitus Type II Status:Active Commen ts:Mother. Hypertension Status:Active Comments:Mother. Hypothyroidism Status:Active Comments:Josefa horn Osteoarthritis Status:Active Comments:Mother. Cancer Status:Active Comments:Father. lung--heavy smoker Cerebrovascular Accident Status:Active Comment s:Negative Family History Of. Coronary Artery Disease Status:Active Comments :Negative Family History Of. Diabetes Mellitus Type II Status:Active Commen ts:Mother. Hypertension Status:Active Comments:Mother. Hypothyroidism Status:Active Comments:Josefa horn Osteoarthritis Status:Active Comments:Mother. Cancer Status:Active Comments:Father. lung--heavy smoker Cerebrovascular Accident Status:Active Comment s:Negative Family History Of. Coronary Artery Disease Status:Active Comments :Negative Family History Of. Diabetes Mellitus Type II Status:Active Commen ts:Mother. Hypertension Status:Active Comments:Mother. Hypothyroidism Status:Active Comments:Josefa horn Osteoarthritis Status:Active Comments:Mother. Cancer Status:Active Comments:Father. lung--heavy smoker Cerebrovascular Accident Status:Active Comment s:Negative Family History Of. Coronary Artery Disease Status:Active Comments :Negative Family History Of. Diabetes Mellitus Type II Status:Active Commen ts:Mother. Hypertension Status:Active Comments:Mother. Hypothyroidism Status:Active Comments:Josefa horn Osteoarthritis Status:Active Comments:Mother. Cancer Status:Active Comments:Father. lung--heavy smoker Cerebrovascular Accident Status:Active Comment s:Negative Family History Of. Coronary Artery Disease Status:Active Comments :Negative Family History Of. Diabetes Mellitus Type II Status:Active Commen ts:Mother. Hypertension Status:Active Comments:Mother. Hypothyroidism Status:Active Comments:Josefa horn Osteoarthritis Status:Active Comments:Mother. Cancer Status:Active Comments:Father. lung--heavy smoker Cerebrovascular Accident Status:Active Comment s:Negative Family History Of. Coronary Artery Disease Status:Active Comments :Negative Family History Of. Diabetes Mellitus Type II Status:Active Commen ts:Mother. Hypertension Status:Active Comments:Mother. Hypothyroidism Status:Active Comments:Josefa horn Osteoarthritis Status:Active Comments:Mother. Relationship Condition Age at Onset Recorded Date/T jenifer sister Malignant neoplasm of colon Unknown mother Diabetes mellitus Unknown Advance Directives No Advanced Directives Records FoundNo Advanced Directives Records FoundNo Advanced Directives Records FoundNo Advanced Directives Records Found Chief Complaint and Reason for Visit Chief Complaint Admit Date POSITIVE COLOGUARD December 28, 2024 1:12 pm Additional Source Comments (unrecognized sect ion and content) No Status Records FoundNo Status Records FoundNo Status Records FoundNo Status Records Found INFORMATION SOURCE (unrecogn ized section and content) DATE CREATED AUTHOR 12/24/2022 [facility] DATE CREATED AUTHOR AUTHOR'S ORGANIZ ATION 04/06/2024 [facility] DATE CREATED AUTHOR AUTHOR'S ORGANIZ ATION 07/30/2024 [facility] DATE CREATED AUTHOR AUTHOR'S ORGANIZ ATION 02/04/2025 [facility] Care Teams (unrecognized sec tion and content) Team Status: Active Member Role Status Dates FLORENTINO Vasquez Primary Care Provider Active Team Status: Inactive Member Role Status Dates Dr. Vaibhav Cardenas MD Attending Provider Active Start: December 28, 2024 End: December 28, 2024 FLORENTINO Vasquez Primary Care Provider Active Start: December 28, 2024 End: December 28, 2024 FLORENTINO Vasquez Referring Provider Active Start: December 28, 2024 End: December 28, 2024 Goals (unrecognized section and content) Goals may be documented in a n alternate section FOR RECORDS PERTAINING TO PATIENTS WHO ARE OR HAVE BEEN ENROLLED IN A CHEMICAL DEPENDENCY/SUBSTANCEABUSE PROGRAM, SOME INFORMATION MAY BE OMITTED. This clinical summary was aggregated from multiple sources. Caution should be exercised in using it in the provision of clinical care. This summary normalizes information from multiple sources, and as a consequence, information in this document may materially change the coding, format and clinical context of patient data. In addition, data may be omitted in some cases. CLINICAL DECISIONS SHOULD BE BASED ON THE PRIMARY CLINICAL RECORDS. [employer] [facility]. provides no warranty or guarantee of the accuracy or completeness of information in this document.
[2025-02-05] MEDS: Lactated Ringers 1,000 ML 15 ML IV (06:48)
--- NOTE | 2025-02-05 07:00 | PCM.PRE.AN2 ---
ASA Classification* ASA Classification ASA Classification: 2 Assessment & Plan Anesthesia* Anesthesia Assessment Anesthesia Assessment: Discussed sedation and/or anesthesia options, risks, benefits, and alternatives with patient/parents/legal guardian/POA. Questions invited. The patient/parents/legal guardian/POA seems to understand and agrees to proceed with anesthesia plan. Reviewed the physical assessment, medical history, allergy history and patient home medications list prior to surgery/procedure/anesthetic and documented any changes. Performed airway and anesthesia risk assessments. Anesthesia Type Anesthesia Type: MAC History Source History Obtained from:: Patient and Chart Anesthesia Focused Assessment* Temperature: 98.6 F Pulse Rate: 62 Blood Pressure: 123/74 Respiratory Rate: 16 Pulse Ox: 97 Airway Assessment Mouth opens: >3 cm Mallampati Score: III Teeth Condition: Intact Neck Range of motion (ROM): Full ROM Labs Anesthesia Preop lab: CBC CHEMISTRY COAG Pre-Assessment Diagnosis/Proposed Procedure Planned Operative Procedure(s): CSCOPE Anesthesia History Anesthesia History - metal mold dresser: Anesthesia History - metal mold dresser Hx Hospitalization No 02/01/25 12:25 Any Problems With Anesthesia No 02/01/25 12:25 Cholinesterase deficiency No 02/01/25 12:25 You/Your Family Experience No 02/01/25 12:25 fever (hyperthermia) with Relationship Recent Exposure to Contagious No 02/05/25 06:45 Disease Does patient have nerve No 02/01/25 12:25 stimulator Patient instructed to have device shut off --Does patient have Pacemaker No 02/05/25 06:45 or ICD? When Was Last Pacemaker Check QUESTION #4 FULL TEXT: You/Your Family Experience fever (hyperthermia) with Anesthesia Last Oral Intake Last Oral intake: Last Oral Intake NPO since 04:00 02/05/25 06:45 Meds taken in AM with sips of No 02/05/25 06:45 water? Meds patient instructed to take am of surgery PONV PONV - metal mold dresser: PONV - metal mold dresser Female No 02/01/25 12:25 HX of Motion Sickness No 02/01/25 12:25 HX of N/V After Surgery No 02/01/25 12:25 Non-Smoker No 02/01/25 12:25 Duration of Surgery greater No 02/01/25 12:25 than 60 minutes Number of Risk Factors PONV Score Height & Weight Height & Weight: Anesthesia: Height & Weight Height 5 ft 10 in 02/05/25 06:45 Weight: 91.9 kg 02/05/25 06:45 Body Mass Index (BMI) 29.0 02/05/25 06:45 Respiratory Assessment Respiratory Assessment - metal mold dresser: Respiratory Tract Infection Hx - metal mold dresser Hx Respiratory Tract Infection No 02/01/25 12:25 STOP Sleep Apnea STOP Sleep Apnea - metal mold dresser: STOP Sleep Apnea - metal mold dresser Hx Hypertension Yes: NO MED FOR 2 YRS 02/01/25 12:25 Hx Sleep Apnea No 02/01/25 12:25 CPAP BIPAP Do you snore loudly (louder No 02/01/25 12:25 than talking or can be heard Do you often feel tired/ No 02/01/25 12:25 fatigued/ sleepy during daytime? Has anyone observed you stop No 02/01/25 12:25 breathing during sleep? STOP Results Negative 02/01/25 12:25 QUESTION #5 FULL TEXT : Do you snore loudly (louder than talking or can be heard through closed doors)? 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 Specify any problems Hx of Preganancy in last 3 N/A 02/01/25 12:25 Months Nurse Filling Out Transfusion DSCHRIBER 02/01/25 12:25 & Questions: Date: 02/01/25 02/01/25 12:25 Time: 12:26 02/01/25 12:25 Patient unable to answer at this time (ie. confused, unrespo /Reproduction History /Reproductive History - metal mold dresser: /Reproductive Hx- metal mold dresser Hx Now No 02/01/25 12:25 Gestational Age (in weeks): EDC: Hx Hx Para Hx Section SAB No 02/01/25 12:25 Active Medications Active Medications: Current Medications Generic Name Dose Route Start Last Admin Trade Name Freq PRN Reason Stop Dose Admin Lactated Ringer's 1,000 mls @ 15 mls/hr 02/05/25 06:30 02/05/25 06:48 IV 15 mls/hr .Q48H CHRIS Administration PFSH Medical History (Updated 02/01/25 @ 12:30 by Gem Roberts) Wears glasses Alcohol use Arthritis Back pain Chewing tobacco use Hypertension Positive colorectal cancer screening using Cologuard test Home Medications ?Medication ?Instructions ?Recorded ?Last Taken ?Type NK 12/28/24 Unknown History Allergy/AdvReac Type Severity Reaction Status Date / Time No Known Allergies Allergy Verified 02/05/25 06:44 Family History (Updated 12/28/24 @ 13:24 by Leonor Danielle LPN) Sister Colon cancer Mother Diabetes Surgical History (Updated 02/01/25 @ 12:30 by Gem Roberts) History of carpal tunnel surgery of right wrist History of carpal tunnel surgery of left wrist Social History Smoking Status: Current every day smoker tobacco type: smokeless tobacco Review of Systems (Anesthesia) ROS Narrative System reviewed and no additional complaints, except as documented.
--- NOTE | 2025-02-05 07:22 | PCM.HP.STD ---
HPI - General General Date of Admission: 02/05/25 Date of Service: 02/05/25 Chief Complaint: colonoscopy HPI Narrative The patient is a 59-year-old male who is being seen today for a colonoscopy. He has undergone previous Cologuard testing however the most recent Cologuard test was positive. He has never had a colonoscopy. He denies any GI issues or complaints. He states that his older sister recently was diagnosed with colon cancer. [facility] Medical History (Updated 02/01/25 @ 12:30 by Gem Roberts) Wears glasses Alcohol use Arthritis Back pain Chewing tobacco use Hypertension Positive colorectal cancer screening using Cologuard test Home Medications ?Medication ?Instructions ?Recorded ?Last Taken ?Type NK 12/28/24 Unknown History Allergy/AdvReac Type Severity Reaction Status Date / Time No Known Allergies Allergy Verified 02/05/25 06:44 Family History (Updated 12/28/24 @ 13:24 by Leonor Danielle LPN) Sister Colon cancer Mother Diabetes Surgical History (Updated 02/01/25 @ 12:30 by Gem Roberts) History of carpal tunnel surgery of right wrist History of carpal tunnel surgery of left wrist Social History Smoking Status: Current every day smoker tobacco type: smokeless tobacco ROS Constitutional Constitutional: Reports systems reviewed and no addt'l complaints, except as documented Eyes Eyes: Reports systems reviewed and no addt'l complaints, except as documented ENT HEENT: Reports systems reviewed and no addt'l complaints, except as documented Cardiovascular Cardiovascular: Reports systems reviewed and no addt'l complaints, except as documented Respiratory/Chest Respiratory/Chest: Reports systems reviewed and no addt'l complaints, except as documented Vital Signs Vital Signs Vital Signs: 02/05/25 06:45 02/05/25 06:45 02/05/25 07:04 Temperature 98.6 F 98.6 F Temperature Source Temporal Pulse Rate 62 62 Respiratory Rate 16 16 Respiratory Pattern Normal Blood Pressure 123/74 H 123/74 H Blood Pressure Mean 90 Blood Pressure Source Monitor Blood Pressure Position Sitting Blood Pressure Location Left Arm Pulse Ox 97 97 Oxygen Delivery Method Room Air Weight Weight: 202 lb 9.677 oz Body Mass Index (BMI) 29.0 Physical Exam Const alert, oriented x3 and no apparent distress Assessment & Plan Assessment/Plan (1) Positive colorectal cancer screening using Cologuard test: PLAN: Plan screening colonoscopy today
--- NOTE | 2025-02-05 07:30 | COLBX_PTH ---
PATIENT: CURT MANSFIELD LOC: [facility] U#:[id number] AGE/SX: 59/M ROOM: RE02/05/[address]: Dr. Vaibhav Cardenas MD : 1965 BED: DIS: 02/05/2025 SPEC #: [id number] RECD: 02/05/25 09:30 STATUS: JACE RIKKI #: [id number] TIMOTHY: 02/05/25 07:[address]: Vaibhav Cardenas DEPT: SURGICAL PATHOLOGY RECD BY: Damon Hickman ENTERED: 02/05/25 10:59 SP TYPE: COLON BX OTHR DR: FLORENTINO Vasquez Tissues: A - Sigmoid colon biopsy B - Sigmoid colon biopsy Procedures: Surgery Specimen Level IV HEADER OPERATION: Colonoscopy with polyp biopsy and polypectomy PRE-OP DIAGNOSIS: Positive colorectal cancer screening using Cologaurd TISSUE SUBMITTED: A- Sigmoid polyp biopsy, B- Sigmoid polyp with hot snare MICROSCOPIC DIAGNOSIS A. Sigmoid colon, polyp, biopsy: - Hyperplastic polyp. B. Sigmoid colon, polyp, biopsy: - Tubular adenoma. MICROSCOPIC DESCRIPTION Slides are reviewed. GROSS DESCRIPTION A. Received in fixative is one container labeled with the patient's name and designated Sigmoid polyp biopsy. The specimen consists of one irregular fragment of light cherry soft tissue that measures 0.4 x 0.3 x 0.2 cm. The specimen is totally submitted in one cassette. B. Received in fixative is one container labeled with the patient's name and designated Sigmoid polyp with hot snare. The specimen consists of multiple irregular fragments of light cherry soft tissue that in aggregate measure 0.7 x 0.4 x 0.2 cm. The specimen is totally submitted in one cassette. 02/05/2025 CPT:49609m4
--- NOTE | 2025-02-05 08:28 | OP.COLON_ITS ---
Patient Name: Stewart Tobias Procedure Date: 02/05/2025 6:35 AM Date of : 1965 Age: 59 Procedure: Colonoscopy Indications: Positive Cologuard test Providers: Vaibhav Cardenas MD Referring MD: Gordon Vasquez Medicines: Monitored Anesthesia Care Patient Profile: Refer to note in patient chart for documentation of history and physical. Last Colonoscopy: none. The patient's first colonoscopy is today. Refer to note in patient chart for documentation of history and physical. Complications: No immediate complications. Estimated blood loss: Minimal. Procedure: Pre-Anesthesia Assessment: - Prior to the procedure, a History and Physical was performed, and patient medications and allergies were reviewed. The patient's tolerance of previous anesthesia was also reviewed. The risks and benefits of the procedure and the sedation options and risks were discussed with the patient. All questions were answered, and informed consent was obtained. Prior Anticoagulants: The patient has taken no anticoagulant or antiplatelet agents. ASA Grade Assessment: II - A patient with mild systemic disease. After reviewing the risks and benefits, the patient was deemed in satisfactory condition to undergo the procedure. After I obtained informed consent, the scope was passed under direct vision. Throughout the procedure, the patient's blood pressure, pulse, and oxygen saturations were monitored continuously. The adult colonoscope was introduced through the anus and advanced to the cecum, identified by appendiceal orifice and ileocecal valve. The ileocecal valve, appendiceal orifice, and rectum were photographed. The entire colon was well visualized. The entire colon was well visualized. The colonoscopy was performed without difficulty. The patient tolerated the procedure well. The quality of the bowel preparation was adequate. Moderate Sedation: See the other procedure note for documentation of moderate sedation with intraservice time. Scope In: 7:37:35 AM Scope Withdrawal Time 0 hours 24 minutes 6 seconds Scope Out: 8:19:55 AM Total Procedure Duration Time 0 hours 42 minutes 20 seconds Findings: The perianal and digital rectal examinations were normal. A few small-mouthed diverticula were found in the sigmoid colon. Internal hemorrhoids were found during retroflexion. The hemorrhoids were moderate. A 2 mm polyp was found in the sigmoid colon. The polyp was sessile. The polyp was removed with a cold biopsy forceps. Resection and retrieval were complete. Verification of patient identification for the specimen was done by the nurse using the patient's name, date and medical record number. Estimated blood loss was minimal. A 6 mm polyp was found in the sigmoid colon. The polyp was semi-sessile. The polyp was removed with a hot snare. Resection and retrieval were complete. Verification of patient identification for the specimen was done by the nurse using the patient's name, date and medical record number. Estimated blood loss was minimal. The exam was otherwise without abnormality on direct and retroflexion views. Impression: - Diverticulosis in the sigmoid colon. - Internal hemorrhoids. - One 2 mm polyp in the sigmoid colon, removed with a cold biopsy forceps. Resected and retrieved. - One 6 mm polyp in the sigmoid colon, removed with a hot snare. Resected and retrieved. - The examination was otherwise normal on direct and retroflexion views. Recommendation: - Discharge patient to home (ambulatory). - High fiber diet. - Await pathology results. - Repeat colonoscopy in 3 - 5 years for surveillance. - Return to my office PRN. - Continue present medications. Procedure Code(s): --- Professional --- 04241, Colonoscopy, flexible; with removal of tumor(s), polyp(s), or other lesion(s) by snare technique 74632, 59, Colonoscopy, flexible; with biopsy, single or multiple Diagnosis Code(s): --- Professional --- K64.8, Other hemorrhoids D12.5, Benign neoplasm of sigmoid colon K57.30, Diverticulosis of large intestine without perforation or abscess without bleeding R19.5, Other fecal abnormalities CPT copyright 2021 [employer] [place] [employer] [employer]. All rights reserved. The codes documented in this report are preliminary and upon photocomposing keyboard operator review may be revised to meet current compliance requirements. Vaibhav Cardenas MD 02/05/2025 8:27:18 AM This report has been signed electronically. Number of Addenda: 0 Note Initiated On: 02/05/2025 6:35 AM
--- NOTE | 2025-02-05 08:28 | PCM.POST.ANE ---
Anesthesia: Postop Eval I Current Vital Signs Temperature: 98.5 F Pulse Rate: 60 Blood Pressure: 117/78 Respiratory Rate: 16 Pulse Ox: 98 Oxygen Delivery Method: Room Air Assessment Airway patent: Yes Spontaneous unlabored respirations: Yes Mental status: Awake and Calm nausea: No Vomiting: No Anesthesia Complication: No Fluid Hydration Crystalloid volume administer (ml): 600 Total IV fluid infused: 600 Progress Note Anesthesia document: Postop Eval 1 completed: Yes
--- NOTE | 2025-02-05 08:28 | OP.CCLET_ITS ---
02/05/2025 Gordon Vasquez Re : Colonoscopy procedure for Stewart Tobias Dear [place] This procedure was performed on Wednesday, February 05, 2025. My impressions and recommendations are as follows: Impressions : - Diverticulosis in the sigmoid colon. - Internal hemorrhoids. - One 2 mm polyp in the sigmoid colon, removed with a cold biopsy forceps. Resected and retrieved. - One 6 mm polyp in the sigmoid colon, removed with a hot snare. Resected and retrieved. - The examination was otherwise normal on direct and retroflexion views. Recommendations : - Discharge patient to home (ambulatory). - High fiber diet. - Await pathology results. - Repeat colonoscopy in 3 - 5 years for surveillance. - Return to my office PRN. - Continue present medications. My findings are described in the full procedure note, which is enclosed. If I can be of further assistance, please feel free to contact me at . Sincerely, Vaibhav Cardenas MD 02/05/2025 8:27:18 AM This report has been signed electronically.
--- NOTE | 2025-02-05 08:38 | PCM.POSTANE2 ---
Anesthesia Postop Eval I Sum Anesthesia Postop Eval I Summary Anesthesia Postop Eval I Summary: Anesthesia Postop Eval I: Assessment Summary Airway patent Spontaneous unlabored respirations Mental status nausea Vomiting Anesthesia Postop Eval I: Fluid Summary Crystalloid volume administer (ml) Colloids volume administered ( ml) Blood Product volume administered (ml) Total IV fluid infused Anesthesia Postop Eval I: Summary Notes Anesthesia Complication Anesthesia Complication Comment: Post-operative progress note Anesthesia: Postop Eval II Evaluation Mental status: Awake and Calm Pain Level: 0 nausea: No Vomiting: No Progress Note Post-operative progress note: Meets criteria for Phase 2 discharge Complications Anesthesia Complication: No
== END 2025-02-05 09:00 | disposition home or self-care (01) ==
LOC: EN 06:16 → AC 06:17
PROVIDERS: PCP Physician Assistant; Referring Provider Physician Assistant; Visit Provider Surgery
PROC: 0DJD8ZZ Inspection of Lower Intestinal Tract, Via Natural or Artificial Opening Endoscopic (ICD-10-PCS; CPT 45378; principal; 2025-02-05 07:25)
DX: R19.5 Other fecal abnormalities (principal); K64.8 Other hemorrhoids; I10 Essential (primary) hypertension; D12.5 Benign neoplasm of sigmoid colon; K57.30 Diverticulosis of large intestine without perforation or abscess without bleeding; Z80.0 Family history of malignant neoplasm of digestive organs; F17.290 Nicotine dependence, other tobacco product, uncomplicated
CPT/HCPCS: 45380; 45385; 88305; J2405